=== PATIENT | male | born 1945 | race African-American/Black ===

== ENCOUNTER 2018-10-09 18:23 | Emergency (ER) | payer MEDICARE, OTHER ==
[~2018-10-09] VITALS: Ht 177.8 cm; Wt 77.1 kg
[~2018-10-09 18:23] MED LIST: AMOX1TAB61 PO; FOLI1TAB16 PO; HYDR-2761 PO; LISI-334 PO; LISI10TA2 PO; TAMS0.4C97 PO; THIA100T57 PO
[2018-10-09] MEDS ORDERED: IV NORMAL SALINE 1000ML BAG 1,000 ML IV SCH (18:28)
[2018-10-09] MEDS ORDERED: ONDANSETRON PF 4 MG/2 ML VIAL. IV ONE (18:30)
--- NOTE | 2018-10-09 18:42 | PHYS DOC ---
Past Medical History Past Medical History: Anxiety, Depression, High Cholesterol, Hypertension Additional Past Medical Histor: ENLARGED PROSTATE Past Surgical History: Cholecystectomy Additional Past Surgical Histo: ETOH ON BOARD Alcohol Use: None Drug Use: None Adult General Chief Complaint Chief Complaint: NAUSEA/VOMITING/DIARRHA HPI HPI Patient is a 73 year old male who presents via EMS with complaining of nausea and vomiting. Patient complaining of 4 episodes of nonbloody vomiting that started about an hour prior to arrival to ER with constant nausea. Patient state s he had 1 pint of pal today like his usual for the last 50 years. Patient denies abdominal pain, diarrhea and constipation, urinary symptom, fever and chills, chest pain. Patient complaining of chronic neck pain and intermittent episodes of headache and rated his pain 6/10. Patient complaining of bilateral hand paresthesia since his vomiting was started. Patient denies smoking cigarettes and using drugs. Patient states he had the same episode of nausea and vomiting one month ago. Review of Systems Review of Systems Constitutional: Denies fever or chills [] Eyes: Denies change in visual acuity, redness, or eye pain [] HENT: Denies nasal congestion or sore throat [] Respiratory: Denies cough or shortness of breath [] Cardiovascular: No additional information not addressed in HPI [] GI: Denies abdominal pain, bloody stools or diarrhea [] : Denies dysuria or hematuria [] Musculoskeletal: Post coronary neck and back. Integument: Denies rash or skin lesions [] Neurologic: Reports headache, sensory changes, denies focal weakness [] Endocrine: Denies polyuria or polydipsia [] All other systems were reviewed and found to be within normal limits, except as documented in this note. Current Medications Current Medications Current Medications Medications (Trade) Dose Ordered Sig/Ino Start Time Stop Time Status Last Admin Dose Admin Ondansetron HCl (Zofran) 4 mg 1X ONCE 10/09/18 18:30 10/09/18 18:32 DC Sodium Chloride 1,000 ml @ 1,000 mls/hr Q1H 10/09/18 18:28 10/09/18 19:27 DC 10/09/18 19:00 1,000 MLS/HR Allergies Allergies Allergies Coded Allergies Type Severity Reaction Last Updated Verified No Known Drug Allergies 07/22/15 No Physical Exam Physical Exam Constitutional: Well developed, well nourished, mild distress, non-toxic appearance, smell of alcohol on breath. [] HENT: Normocephalic, atraumatic. Eyes: PERRLA, EOMI, conjunctiva normal, no discharge. [] Neck: Normal range of motion, no tenderness, supple, no stridor. [] Cardiovascular:Heart rate regular rhythm, no murmur [] Lungs & Thorax: Bilateral breath sounds clear to auscultation [] Abdomen: Bowel sounds normal, soft, no tenderness, no masses, no pulsatile masses. [] Skin: Warm, dry, no erythema, no rash. [] Back: No tenderness, no CVA tenderness. [] Extremities: No tenderness, no cyanosis, no clubbing, ROM intact, no edema. [] Neurologic: Alert and oriented X 3, no focal deficits noted. [] Psychologic: Affect normal, judgement normal, mood normal. [] Current Patient Data Vital Signs Vital Signs Date Time Temp Pulse Resp B/P (MAP) Pulse Ox O2 Delivery O2 Flow Rate FiO2 10/09/18 20:53 93 18 153/80 (104) 93 Room Air 10/09/18 18:30 98.0 98.0 Lab Values Laboratory Tests Test 10/09/18 18:55 10/09/18 20:05 White Blood Count 6.3 x10^3/uL (4.0-11.0) Red Blood Count 4.47 x10^6/uL (4.30-5.70) Hemoglobin 13.1 g/dL (13.0-17.5) Hematocrit 38.6 % (39.0-53.0) L Mean Corpuscular Volume 87 fL (79-100) Mean Corpuscular Hemoglobin 29 pg (25-35) Mean Corpuscular Hemoglobin Concent 34 g/dL (31-37) Red Cell Distribution Width 14.9 % (11.5-14.5) H Platelet Count 267 x10^3/uL (140-400) Neutrophils (%) (Auto) 69 % (31-73) Lymphocytes (%) (Auto) 21 % (24-48) L Monocytes (%) (Auto) 8 % (0-9) Eosinophils (%) (Auto) 1 % (0-3) Basophils (%) (Auto) 1 % (0-3) Neutrophils # (Auto) 4.3 x10^3/uL (1.8-7.7) Lymphocytes # (Auto) 1.3 x10^3/uL (1.0-4.8) Monocytes # (Auto) 0.5 x10^3/uL (0.0-1.1) Eosinophils # (Auto) 0.1 x10^3/uL (0.0-0.7) Basophils # (Auto) 0.1 x10^3/uL (0.0-0.2) Prothrombin Time 13.3 SEC (11.7-14.0) Prothrombin Time INR 1.0 (0.8-1.1) Activated Partial Thromboplast Time 24 SEC (24-38) Sodium Level 138 mmol/L (136-145) Potassium Level 3.5 mmol/L (3.5-5.1) Chloride Level 98 mmol/L (98-107) Carbon Dioxide Level 24 mmol/L (21-32) Anion Gap 16 (6-14) H Blood Urea Nitrogen 13 mg/dL (8-26) Creatinine 1.0 mg/dL (0.7-1.3) Estimated GFR (Cockcroft-Gault) 88.9 BUN/Creatinine Ratio 13 (6-20) Glucose Level 109 mg/dL (70-99) H Calcium Level 8.9 mg/dL (8.5-10.1) Total Bilirubin 0.3 mg/dL (0.2-1.0) Aspartate Amino Transferase (AST) 35 U/L (15-37) Alanine Aminotransferase (ALT) 35 U/L (16-63) Alkaline Phosphatase 57 U/L (46-116) Creatine Kinase 189 U/L (39-308) Troponin I Quantitative < 0.017 ng/mL (0.000-0.055) SJ-Kwe-X-Type Natriuretic Peptide 349 pg/mL (0-124) H Total Protein 8.5 g/dL (6.4-8.2) H Albumin 3.9 g/dL (3.4-5.0) Albumin/Globulin Ratio 0.8 (1.0-1.7) L Lipase 193 U/L (73-393) Ethyl Alcohol Level 107 mg/dL (0-10) H Urine Collection Type Unknown Urine Color Yellow Urine Clarity Clear Urine pH 6.5 Urine Specific [place] 1.010 Urine Protein Negative mg/dL (NEG-TRACE) Urine Glucose (UA) Negative mg/dL (NEG) Urine Ketones (Stick) Negative mg/dL (NEG) Urine Blood Large (NEG) Urine Nitrite Negative (NEG) Urine Bilirubin Negative (NEG) Urine Urobilinogen Dipstick 1.0 mg/dL (0.2 mg/dL) Urine Leukocyte Esterase Trace (NEG) Urine RBC 11-20 /HPF (0-2) Urine WBC 5-10 /HPF (0-4) Urine Squamous Epithelial Cells Few /LPF Urine Bacteria 0 /HPF (0-FEW) Urine Hyaline Casts Few /HPF Urine Mucus Mod /LPF Urine Opiates Screen Neg (NEG) Urine Methadone Screen Neg (NEG) Urine Barbiturates Neg (NEG) Urine Phencyclidine Screen Neg (NEG) Urine Amphetamine/Methamphetamine Neg (NEG) Urine Benzodiazepines Screen Neg (NEG) Urine Cocaine Screen Neg (NEG) Urine Cannabinoids Screen Neg (NEG) Urine Ethyl Alcohol Pos (NEG) Laboratory Tests 10/09/18 18:55 Laboratory Tests 10/09/18 18:55 EKG EKG EKG interpreted by me. EKG at 1832 showed normal sinus rhythm at rate of 87, prolonged QT at 416, no acute history and T-wave elevation.[] Radiology/Procedures Radiology/Procedures [][facility] [address] [place], [place] [id number] IMAGING REPORT Signed PATIENT: NEEL CRAVEN ACCOUNT: [id number] : 1945 LOCATION: ER AGE: 73 SEX: M EXAM STATUS: REG ER ORD. PHYSICIAN: THONY DILLON MD REASON: headache PROCEDURE: CT HEAD AND CERVICAL SPINE WO CT scan of the head without contrast 10/09/2018 Clinical History: Headaches. Head injury. Technique: Unenhanced, contiguous, 5 mm axial sections were obtained through the head. One or more of the following individualized dose reduction techniques were utilized for this study: 1. Automated exposure control. 2. Adjustment of the mA and/or kV according to patient size. 3. Use of iterative reconstruction technique. Findings: Comparison study is dated 07/22/2015. There is generalized parenchymal atrophy. Areas of decreased attenuation are seen within the periventricular and subcortical white matter of both cerebral hemispheres consistent with areas of small vessel ischemic disease. No acute parenchymal abnormality is seen. No extra-axial fluid collection is noted. No skull fracture is seen. A 1 cm mucous retention cyst is seen involving the right maxillary sinus. Impression: No acute intracranial abnormality is seen. CT scan of the cervical spine without contrast 10/09/2018 Clinical history: Neck injury. Technique: Unenhanced, contiguous, 0.625 mm axial sections were obtained through the cervical spine. Axial, coronal and sagittal reconstructed images were obtained. One or more of the following individualized dose reduction techniques were utilized for this study: 1. Automated exposure control. 2. Adjustment of the mA and/or kV according to patient size. 3. Use of iterative reconstruction technique. Findings: Sagittal and coronal reconstructed images demonstrate very mild lateral curvature of the cervical spine, convex to the right. Degenerative changes consisting of varying degrees of disc space narrowing, vertebral endplate sclerosis and mild to moderate anterior and posterior vertebral body osteophyte formation are seen throughout the cervical disc spaces. No fracture or subluxation of the cervical vertebrae seen. Degenerative changes are seen involving the uncovertebral and facet joints throughout the cervical disc spaces. Impression: No fracture or subluxation of the cervical vertebra is identified. Electronically signed by: Adolfo Henderson MD (10/09/2018 7:47 PM) [facility] DICTATED and SIGNED BY: ADOLFO HENDERSON MD DATE: 10/09/181946 Course & Med Decision Making Course & Med Decision Making Pertinent Labs and Imaging studies reviewed. (See chart for details) Evaluation of patient in ER showed 73-year-old male patient brought in by EMS because of episodes of nausea and vomiting and chronic neck pain and headache. Patient was treated with Zofran by EMS and did not have active vomiting in ER. IV fluid was given. Labs showed mild elevation of blood alcohol with history of alcohol abuse. Patient felt better after treatment in ER and tolerated oral intake. Plan discharge patient home to diagnose of alcohol gastritis. Dragon Disclaimer Dragon Disclaimer This electronic medical record was generated, in whole or in part, using a voice recognition dictation system. Departure Departure Impression: Primary Impression: Acute alcoholic gastritis with hemorrhage Additional Impressions: Nausea and vomiting Urinary tract infection Alcohol abuse Chronic neck pain Disposition: HOME, SELF-CARE (at 2044) Condition: IMPROVED Referrals: UNKNOWN PCP NAME (PCP) Patient Instructions: Alcoholic Gastritis-Brief, Nausea and Vomiting, Urinary Tract Infection Additional Instructions: Drink plenty of liquids Follow-up with your primary care physician in 3-5 days Return to ER if not getting better Do not eat solid foods for 24 hours Scripts Ciprofloxacin Hcl (CIPRO) 250 Mg Tablet 1 TAB PO BID for infection, #6 TAB Prov: THONY DILLON MD 10/09/18 Ondansetron Hcl (ZOFRAN) 4 Mg Tablet 1 TAB PO PRN Q6-8HRS for nausea, #12 TAB Prov: THONY DILLON MD 10/09/18 Problem Qualifiers Additional Impressions: Nausea and vomiting Vomiting type: unspecified Vomiting Intractability: non-intractable Qualified Codes: R11.2 - Nausea with vomiting, unspecified Urinary tract infection Urinary tract infection type: site unspecified Hematuria presence: without hematuria Qualified Codes: N39.0 - Urinary tract infection, site not specified THONY DILLON MD Oct 09, 2018 18:42
[2018-10-09 19:03] LABS: BASO # 0.1 x10^3/uL (0.0-0.2); BASO % 1 % (0-3); EOS # 0.1 x10^3/uL (0.0-0.7); EOS % 1 % (0-3); HEMATOCRIT 38.6 % (39.0-53.0); HEMOGLOBIN 13.1 g/dL (13.0-17.5); LYMPH # 1.3 x10^3/uL (1.0-4.8); LYMPH % 21 % (24-48); MEAN CORPUSCULAR HEMOGLOBIN 29 pg (25-35); MEAN CORPUSCULAR HGB CONC 34 g/dL (31-37); MEAN CORPUSCULAR VOLUME 87 fL (79-100); MONO # 0.5 x10^3/uL (0.0-1.1); MONO % 8 % (0-9); NEUT # 4.3 x10^3/uL (1.8-7.7); NEUT % 69 % (31-73); PLATELET COUNT 267 x10^3/uL (140-400); RED BLOOD COUNT 4.47 x10^6/uL (4.30-5.70); RED CELL DISTRIBUTION WIDTH 14.9 % (11.5-14.5); WHITE BLOOD COUNT 6.3 x10^3/uL (4.0-11.0)
[2018-10-09 19:12] LABS: PROTHROMBIN TIME PATIENT 13.3 SEC (11.7-14.0)
[2018-10-09 19:13] LABS: CALCIUM 8.9 mg/dL (8.5-10.1); GFR 88.9; POTASSIUM 3.5 mmol/L (3.5-5.1)
[2018-10-09 19:20] LABS: ALBUMIN 3.9 g/dL (3.4-5.0); ALBUMIN/GLOBULIN RATIO 0.8 (1.0-1.7); TOTAL BILIRUBIN 0.3 mg/dL (0.2-1.0); TOTAL PROTEIN 8.5 g/dL (6.4-8.2)
--- NOTE | 2018-10-09 19:51 | RAD ---
CT scan of the head without contrast 10/09/2018 Clinical History: Headaches. Head injury. Technique: Unenhanced, contiguous, 5 mm axial sections were obtained through the head. One or more of the following individualized dose reduction techniques were utilized for this study: 1. Automated exposure control. 2. Adjustment of the mA and/or kV according to patient size. 3. Use of iterative reconstruction technique. Findings: Comparison study is dated 07/22/2015. There is generalized parenchymal atrophy. Areas of decreased attenuation are seen within the periventricular and subcortical white matter of both cerebral hemispheres consistent with areas of small vessel ischemic disease. No acute parenchymal abnormality is seen. No extra-axial fluid collection is noted. No skull fracture is seen. A 1 cm mucous retention cyst is seen involving the right maxillary sinus. Impression: No acute intracranial abnormality is seen. CT scan of the cervical spine without contrast 10/09/2018 Clinical history: Neck injury. Technique: Unenhanced, contiguous, 0.625 mm axial sections were obtained through the cervical spine. Axial, coronal and sagittal reconstructed images were obtained. One or more of the following individualized dose reduction techniques were utilized for this study: 1. Automated exposure control. 2. Adjustment of the mA and/or kV according to patient size. 3. Use of iterative reconstruction technique. Findings: Sagittal and coronal reconstructed images demonstrate very mild lateral curvature of the cervical spine, convex to the right. Degenerative changes consisting of varying degrees of disc space narrowing, vertebral endplate sclerosis and mild to moderate anterior and posterior vertebral body osteophyte formation are seen throughout the cervical disc spaces. No fracture or subluxation of the cervical vertebrae seen. Degenerative changes are seen involving the uncovertebral and facet joints throughout the cervical disc spaces. Impression: No fracture or subluxation of the cervical vertebra is identified. Electronically signed by: Adolfo Tejada MD (10/09/2018 7:47 PM) [facility]
[2018-10-09 20:23] LABS: BILIRUBIN,URINE NEGATIVE (NEG); CLARITY,URINE CLEAR; COLOR,URINE YELLOW; NITRITE,URINE NEGATIVE (NEG); PH,URINE 6.5; PROTEIN,URINE NEGATIVE (NEG-TRACE)
[2018-10-09 20:29] LABS: BACTERIA,URINE 0 /HPF (0-FEW)
[2018-10-09 20:30] LABS: AMPHETAMINE/METHAMPHETAMINE NEG (NEG); BARBITURATES NEG (NEG); BENZODIAZEPINES NEG (NEG); CANNABINOIDS NEG (NEG); COCAINE NEG (NEG); HYALINE CASTS, URINE FEW /HPF; METHADONE NEG (NEG); OPIATES NEG (NEG); PHENCYCLIDINE NEG (NEG); SQUAMOUS EPITHELIAL CELL,UR FEW /LPF
[2018-10-09] MEDS ORDERED: ONDA4TAB7 PO (20:48)
[2018-10-09] MEDS ORDERED: CIPR250T30 PO (20:51)
[2018-10-09 20:53] VITALS: BP 153/80
--- NOTE | 2018-10-10 06:47 | EKG ---
[facility] [address] [place] [address] Test Date: 2018-10-09 Test Time: 18:33:35 Pat Name: NELE CRAVEN Department: Room: Gender: M Rouge Miller: : 1945 Requested By: THONY DILLON Order Number: [id number] Reading MD: Charles Gaston MD Measurements Intervals [place] Rate: 86 P: -31 ND: 190 QRS: 26 QRSD: 78 T: 49 QT: 416 QTc: 501 Interpretive Statements SINUS RHYTHM PROLONGED QT Electronically Signed On 10-10-2018 16:05:36 CDT by Charles Gaston MD
== END 2018-10-09 20:55 | disposition home or self-care (01) ==
LOC: ER 18:23
DX: K29.21 Alcoholic gastritis with bleeding (principal); F10.10 Alcohol abuse, uncomplicated; Y90.5 Blood alcohol level of 100-119 mg/100 ml; N39.0 Urinary tract infection, site not specified; G89.29 Other chronic pain; M54.2 Cervicalgia; R51 Headache; E78.00 Pure hypercholesterolemia, unspecified; I10 Essential (primary) hypertension; Z90.49 Acquired absence of other specified parts of digestive tract
CPT/HCPCS: 36415; 70450; 72125; 80053; 80307; 81001; 82550; 83690; 83880; 84484; 85025; 85610; 85730; 87086; 93005; 96360; 99285; G0480; J7030

== ENCOUNTER 2019-10-01 15:36 | Observation (INO) | payer OTHER ==
[~2019-10-01] VITALS: Ht 177.8 cm; Wt 79.7 kg
[~2019-10-01 15:36] MED LIST changes: +CIPR250T30 PO; +ONDA4TAB7 PO
[2019-10-01] MEDS ORDERED: FAMOTIDINE 20 MG/2 ML VIAL IVP ONE (16:00)
[2019-10-01] MEDS ORDERED: DEXAMETHASONE SOD PHOS 4 MG/ML VIAL IVP ONE (16:00)
[2019-10-01] MEDS ORDERED: EPINEPHrine 1 MG/ML VIAL SQ ONE (16:00)
[2019-10-01] MEDS ORDERED: EPINEPHrine 1 MG/ML VIAL ONE (16:03)
[2019-10-01 16:13] LABS: BASO # 0.1 x10^3/uL (0.0-0.2); BASO % 1 % (0-3); EOS # 0.2 x10^3/uL (0.0-0.7); EOS % 3 % (0-3); HEMATOCRIT 41.2 % (39.0-53.0); HEMOGLOBIN 13.6 g/dL (13.0-17.5); LYMPH # 1.6 x10^3/uL (1.0-4.8); LYMPH % 23 % (24-48); MEAN CORPUSCULAR HEMOGLOBIN 30 pg (25-35); MEAN CORPUSCULAR HGB CONC 33 g/dL (31-37); MEAN CORPUSCULAR VOLUME 90 fL (79-100); MONO # 1.2 x10^3/uL (0.0-1.1); MONO % 17 % (0-9); NEUT # 3.9 x10^3/uL (1.8-7.7); NEUT % 56 % (31-73); PLATELET COUNT 272 x10^3/uL (140-400); RED BLOOD COUNT 4.59 x10^6/uL (4.30-5.70); RED CELL DISTRIBUTION WIDTH 14.1 % (11.5-14.5); WHITE BLOOD COUNT 6.9 x10^3/uL (4.0-11.0)
[2019-10-01 16:19] LABS: CALCIUM 9.2 mg/dL (8.5-10.1); GFR 88.6; POTASSIUM 4.3 mmol/L (3.5-5.1)
[2019-10-01] MEDS ORDERED: LIDOCAINE 2% JELLY 6ML IN APPLICATOR. ONE (17:38)
--- NOTE | 2019-10-01 17:38 | PHYS DOC ---
Past Medical History Past Medical History: Alcoholism, Anxiety, Depression, High Cholesterol, Hypertension Additional Past Medical Histor: ENLARGED PROSTATE Past Surgical History: Cholecystectomy Additional Past Surgical Histo: ETOH ON BOARD Smoking Status: Former Smoker Additional Information: quit smoking 25-30 years ago Alcohol Use: Sober Additional Information: sober x 9 days- prior was drinking a pint of vodka daily Drug Use: None Social History Narrative: last used cocaine last month General Adult EDM: Chief Complaint: ALLERGIC REACTION HPI: HPI: Patient is a 74 year old male who presents with multiple complaints. Patient accidentally pulled out his Fox catheter. He states he tried to put it back in but was unsuccessful. He also states around the same time he developed swelling in his lips. He is never had anything like this before. He denies any shortness of breath, difficulty talking, difficulty swallowing, difficulty breathing. He states he is on lisinopril. He is never had an allergic reaction. Review of Systems: Review of Systems: General: Denies fever, chills, sweats, fatigue Eyes: Denies drainage, blurred vision, eye redness HENT: Denies rhinorrhea, sore throat, earache Respiratory: Denies cough, shortness of breath, wheezing Cardiac: Denies edema, palpitations, chest pain GI: Denies abdominal pain, Nausea, vomiting MSK: Denies back pain, neck pain Skin: Denies rash, jaundice Neuro: Denies headache, dizziness Psychiatric: Denies SI/HI Heart Score: Risk Factors: Risk Factors: DM, Current or recent (<one month) smoker, HTN, HLP, family history of CAD, obesity. Risk Scores: Score 0 - 3: 2.5% MACE over next 6 weeks - Discharge Home Score 4 - 6: 20.3% MACE over next 6 weeks - Admit for Clinical Observation Score 7 - 10: 72.7% MACE over next 6 weeks - Early Invasive Strategies Current Medications: Current Medications Medications (Trade) Dose Ordered Sig/Ino Start Time Stop Time Status Last Admin Dose Admin Dexamethasone Sodium Phosphate (Decadron) 10 mg 1X ONCE 10/01/19 16:00 10/01/19 16:04 DC 10/01/19 16:10 10 MG Epinephrine HCl (Adrenalin) 1 mg STK-MED ONCE 10/01/19 16:03 10/01/19 16:04 DC Famotidine (Pepcid Vial) 20 mg 1X ONCE 10/01/19 16:00 10/01/19 16:04 DC 10/01/19 16:13 20 MG Allergies: Allergies: Allergies Coded Allergies Type Severity Reaction Last Updated Verified No Known Drug Allergies 07/22/15 No Physical Exam: PE: General: Awake, alert, NAD. Well Nourished, well hydrated. Cooperative HEENT: Atraumatic, EOMI, PERRL, airway patent, severe swelling in upper and lower lips, soft palate swelling Neck: Supple, trachea midline, no stridor Respiratory: CTA bilaterally, normal effort, no wheezing/crackles CV: RRR, no murmur, cap refill <2 GI: Soft, nondistended, nontender, no masses MSK: No obvious deformities Skin: Warm, dry, intact Neuro: A&O x3, speech NL, sensory and motor grossly intact, no focal deficits Psych: Normal affect, normal mood, not suicidal or homicidal Current Patient Data: Labs: Laboratory Tests Test 10/01/19 15:57 White Blood Count 6.9 x10^3/uL (4.0-11.0) Red Blood Count 4.59 x10^6/uL (4.30-5.70) Hemoglobin 13.6 g/dL (13.0-17.5) Hematocrit 41.2 % (39.0-53.0) Mean Corpuscular Volume 90 fL (79-100) Mean Corpuscular Hemoglobin 30 pg (25-35) Mean Corpuscular Hemoglobin Concent 33 g/dL (31-37) Red Cell Distribution Width 14.1 % (11.5-14.5) Platelet Count 272 x10^3/uL (140-400) Neutrophils (%) (Auto) 56 % (31-73) Lymphocytes (%) (Auto) 23 % (24-48) L Monocytes (%) (Auto) 17 % (0-9) H Eosinophils (%) (Auto) 3 % (0-3) Basophils (%) (Auto) 1 % (0-3) Neutrophils # (Auto) 3.9 x10^3/uL (1.8-7.7) Lymphocytes # (Auto) 1.6 x10^3/uL (1.0-4.8) Monocytes # (Auto) 1.2 x10^3/uL (0.0-1.1) H Eosinophils # (Auto) 0.2 x10^3/uL (0.0-0.7) Basophils # (Auto) 0.1 x10^3/uL (0.0-0.2) Sodium Level 134 mmol/L (136-145) L Potassium Level 4.3 mmol/L (3.5-5.1) Chloride Level 99 mmol/L (98-107) Carbon Dioxide Level 25 mmol/L (21-32) Anion Gap 10 (6-14) Blood Urea Nitrogen 17 mg/dL (8-26) Creatinine 1.0 mg/dL (0.7-1.3) Estimated GFR (Cockcroft-Gault) 88.6 Glucose Level 92 mg/dL (70-99) Calcium Level 9.2 mg/dL (8.5-10.1) Laboratory Tests 10/01/19 15:57 Laboratory Tests 10/01/19 15:57 Vital Signs: Vital Signs Date Time Temp Pulse Resp B/P (MAP) Pulse Ox O2 Delivery O2 Flow Rate FiO2 10/01/19 15:54 98.5 87 20 161/74 (103) 99 Room Air 98.5 EKG: EKG: [] Radiology/Procedures: Radiology/Procedures: [] Course & Med Decision Making: Course & Med Decision Making Pertinent Labs and Imaging studies reviewed. (See chart for details) Patient 74-year-old male who presents the emergency room after pulling out his Fox and developing angioedema. Fox will be replaced here in the emergency room. Patient has significant angioedema. Airway is intact at this time. I did offer him immediate intubation versus observation. Patient states he is breathing okay at this time and would like to wait. We will hold off on intubation as he does not have any stridor, wheezing, drooling. He will be given medications for allergic reaction, however this is more likely to be angioedema due to lisinopril. Patient will be admitted for observation. Dragon Disclaimer: Dragon Disclaimer: This electronic medical record was generated, in whole or in part, using a voice recognition dictation system. Departure Departure Impression: Primary Impression: Angioedema Additional Impression: Fox catheter problem Disposition: ADMITTED INPATIENT Condition: STABLE Referrals: UNKNOWN PCP NAME (PCP) Justicifation of Admission Dx: Justifications for Admission: Justification of Admission Dx: Yes ANAND GÓMEZ MD Oct 01, 2019 17:38
[2019-10-01] MEDS ORDERED: LIDOCAINE 2% JELLY 6ML IN APPLICATOR. MM ONE (18:00)
[2019-10-01 19:31] VITALS: BP 156/81
[2019-10-01] MEDS ORDERED: diphenhydrAMINE 50 MG/ML VIAL IVP PRN (19:45)
[2019-10-01] MEDS ORDERED: CARV12.511 PO (19:55)
[2019-10-01] MEDS ORDERED: POTA20TA4 PO (19:55)
[2019-10-01] MEDS ORDERED: FINA5TAB4 PO (19:55)
[2019-10-01] MEDS ORDERED: MAGN400T5 PO (19:55)
--- NOTE | 2019-10-01 20:23 | HP ---
ADMIT DATE: 10/01/2019 CHIEF COMPLAINT: "I pulled out my Fox catheter accidentally." HISTORY OF PRESENT ILLNESS: The patient is a pleasant middle-aged male who pulled out of his Fox. We placed it back in, but interestingly while he was in the ER, he had developed severe angioedema. He indeed is on an MEGHA inhibitor. I have discussed the case with the ER physician. We are going to admit the patient, give him some IV Benadryl, IV steroids, and IV Pepcid. PAST MEDICAL HISTORY: Alcoholism, anxiety, depression, hyperlipidemia, hypertension, BPH, cholecystectomy, previous tobacco abuse. ALLERGIES: LISINOPRIL. FAMILY HISTORY: Diabetes. SOCIAL HISTORY: Does not drink, smoke or take drugs currently, although he used to smoke and drink. MEDICATIONS: Reviewed, please refer to the MRAD. Interestingly, he is on lisinopril 20 mg p.o. every day, but it is on his allergy list? He is also on Cipro, Flomax, hydrocodone, Zofran, folic acid and vitamin B. REVIEW OF SYSTEMS: GENERAL: No history of weight change, weakness or fevers. SKIN: No bruising, hair changes or rashes. EYES: No blurred, double or loss of vision. He complains of swollen lips. NOSE AND THROAT: No history of nosebleeds, hoarseness or sore throat. HEART: No history of palpitations, chest pain or shortness of breath on exertion. LUNGS: Denies cough, hemoptysis, wheezing or shortness of breath. GASTROINTESTINAL: Denies changes in appetite, nausea, vomiting, diarrhea or constipation. GENITOURINARY: No history of frequency, urgency, hesitancy or nocturia. NEUROLOGIC: Denies history of numbness, tingling, tremor or weakness. PSYCHIATRIC: No history of panic, anxiety or depression. ENDOCRINE: No history of heat or cold intolerance, polyuria or polydipsia. EXTREMITIES: Denies muscle weakness, joint pain, pain on walking or stiffness. PHYSICAL EXAMINATION: VITALS: Within normal limits and are stable. GENERAL: No apparent distress. Alert and oriented. HEENT: He has moderate amount of swelling of the lips and the ER doctor offered consideration for intubation, but the patient refused. EYES: Extraocular muscles are intact, pupils are equally round and reactive to light and accommodation MUSCULOSKELETAL: Well developed, well nourished, good range of motion ENDOCRINE: No thyromegaly was palpated LYMPHATICS: No cervical chain or axillary nodes were noted HEMATOPOIETIC: No bruising NECK: Supple, no JVD, no thyromegaly was noted. LUNGS: Clear to auscultation in all lung richards without rhonchi or wheezing. HEART: RRR, S1, S2 present. Peripheral pulses intact, no obvious murmurs were noted. ABDOMEN: Soft, nontender. Positive bowel sounds no organomegaly, normal bowel sounds. EXTREMITIES: Without any cyanosis, clubbing, or edema. Pedal pulses intact, Homans sign is negative. NEUROLOGIC: Normal speech, normal tone. A & O x3, moves all extremities, no obvious focal deficits. PSYCHIATRIC: Normal affect, normal mood. Stable. SKIN: No ulcerations or rashes, good skin turgor, no jaundice. VASCULAR: Good capillary refill, neurovascular bundle appears to be intact. LABORATORY DATA: Hematology is normal. Electrolytes are normal other than sodium of 134. ASSESSMENT AND PLAN: Angioedema. I have ordered Solu-Medrol 60 mg IV every 12 hours, Benadryl 25 mg IV every 6 hours, and Pepcid 20 mg IV every 12 hours. Again, the ER physician explained to me she offered him intubation, but he really refuses it. IV fluids, home meds if possible. DVT prophylaxis. Full code. AHMET HARRIS DO DR: SCOT/bo JOB#: [id number] / [id number]
[2019-10-01] MEDS: FAMOTIDINE 20 MG/2 ML VIAL IVP SCH (21:20)
[2019-10-01] MEDS: methylPREDNISolone SOD SUCC PF 40 MG/ML VIAL. IV SCH (21:21)
[2019-10-01 23:49] VITALS: BP 122/75
--- NOTE | 2019-10-02 02:40 | NUR ---
Patient arrived from ED with angioedema due to medication lisinopril. Verified patients medication and orders with Dr. Treviño. Holding off on medication due to angioedema and clear liquid diet. Patient speech is clear and airway. Patient valuables verified.
[2019-10-02 02:41] VITALS: BP 150/94
[2019-10-02 05:43] LABS: BASO % 0 % (0-3); EOS % 0 % (0-3); HEMATOCRIT 39.8 % (39.0-53.0); HEMOGLOBIN 13.3 g/dL (13.0-17.5); LYMPH # 0.9 x10^3/uL (1.0-4.8); LYMPH % 13 % (24-48); MEAN CORPUSCULAR HEMOGLOBIN 30 pg (25-35); MEAN CORPUSCULAR HGB CONC 34 g/dL (31-37); MEAN CORPUSCULAR VOLUME 91 fL (79-100); MONO # 0.3 x10^3/uL (0.0-1.1); MONO % 5 % (0-9); NEUT # 5.3 x10^3/uL (1.8-7.7); NEUT % 82 % (31-73); PLATELET COUNT 280 x10^3/uL (140-400); RED CELL DISTRIBUTION WIDTH 13.9 % (11.5-14.5); WHITE BLOOD COUNT 6.4 x10^3/uL (4.0-11.0)
[2019-10-02 05:56] LABS: ALBUMIN 3.3 g/dL (3.4-5.0); ALBUMIN/GLOBULIN RATIO 0.7 (1.0-1.7); CALCIUM 9.2 mg/dL (8.5-10.1); CREATININE 0.9 mg/dL (0.7-1.3); GFR 100.1; POTASSIUM 4.8 mmol/L (3.5-5.1); TOTAL BILIRUBIN 0.4 mg/dL (0.2-1.0); TOTAL PROTEIN 8.1 g/dL (6.4-8.2)
[2019-10-02 07:00] VITALS: BP 154/87
[2019-10-02] MEDS: FAMOTIDINE 20 MG/2 ML VIAL IVP SCH (08:18)
[2019-10-02] MEDS: methylPREDNISolone SOD SUCC PF 40 MG/ML VIAL. IV SCH (08:19)
[2019-10-02 11:10] VITALS: BP 151/87
--- NOTE | 2019-10-02 11:45 | NUR ---
SS following for discharge planning. SS reviewed pt chart and discussed with pt RN. Pt is from home and is currently on room air. Pt on clear liquid diet. Discharge plan is to home when medically ready. SS will continue to follow for discharge planning.
--- NOTE | 2019-10-02 12:08 | PDOC3 ---
Discharge Summary Visit Information Date of Admission: Oct 01, 2019 Date of Discharge: Oct 02, 2019 Final Diagnosis acute Angioedema, face and tongue, acute admit, reaction to lisinopril BPH, urinary retentino, chronic savage at home htn PTSD anxiety, depression lipids Problems Medical Problems: (1) Angioedema Status: Acute (2) Savage catheter problem Status: Acute Brief Hospital Course Allergies Allergies Coded Allergies Type Severity Reaction Last Updated Verified lisinopril Allergy Severe Swelling 10/01/19 Yes Vital Signs Vital Signs Date Time Temp Pulse Resp B/P (MAP) Pulse Ox O2 Delivery O2 Flow Rate FiO2 10/02/19 11:10 98.3 84 16 151/87 (108) 97 Room Air 98.3 Lab Results Laboratory Tests Test 10/01/19 15:57 10/02/19 05:00 White Blood Count 6.9 x10^3/uL (4.0-11.0) 6.4 x10^3/uL (4.0-11.0) Red Blood Count 4.59 x10^6/uL (4.30-5.70) 4.40 x10^6/uL (4.30-5.70) Hemoglobin 13.6 g/dL (13.0-17.5) 13.3 g/dL (13.0-17.5) Hematocrit 41.2 % (39.0-53.0) 39.8 % (39.0-53.0) Mean Corpuscular Volume 90 fL (79-100) 91 fL (79-100) Mean Corpuscular Hemoglobin 30 pg (25-35) 30 pg (25-35) Mean Corpuscular Hemoglobin Concent 33 g/dL (31-37) 34 g/dL (31-37) Red Cell Distribution Width 14.1 % (11.5-14.5) 13.9 % (11.5-14.5) Platelet Count 272 x10^3/uL (140-400) 280 x10^3/uL (140-400) Neutrophils (%) (Auto) 56 % (31-73) 82 % (31-73) Lymphocytes (%) (Auto) 23 % (24-48) 13 % (24-48) Monocytes (%) (Auto) 17 % (0-9) 5 % (0-9) Eosinophils (%) (Auto) 3 % (0-3) 0 % (0-3) Basophils (%) (Auto) 1 % (0-3) 0 % (0-3) Neutrophils # (Auto) 3.9 x10^3/uL (1.8-7.7) 5.3 x10^3/uL (1.8-7.7) Lymphocytes # (Auto) 1.6 x10^3/uL (1.0-4.8) 0.9 x10^3/uL (1.0-4.8) Monocytes # (Auto) 1.2 x10^3/uL (0.0-1.1) 0.3 x10^3/uL (0.0-1.1) Eosinophils # (Auto) 0.2 x10^3/uL (0.0-0.7) 0.0 x10^3/uL (0.0-0.7) Basophils # (Auto) 0.1 x10^3/uL (0.0-0.2) 0.0 x10^3/uL (0.0-0.2) Sodium Level 134 mmol/L (136-145) 138 mmol/L (136-145) Potassium Level 4.3 mmol/L (3.5-5.1) 4.8 mmol/L (3.5-5.1) Chloride Level 99 mmol/L (98-107) 103 mmol/L (98-107) Carbon Dioxide Level 25 mmol/L (21-32) 26 mmol/L (21-32) Anion Gap 10 (6-14) 9 (6-14) Blood Urea Nitrogen 17 mg/dL (8-26) 13 mg/dL (8-26) Creatinine 1.0 mg/dL (0.7-1.3) 0.9 mg/dL (0.7-1.3) Estimated GFR (Cockcroft-Gault) 88.6 100.1 Glucose Level 92 mg/dL (70-99) 173 mg/dL (70-99) Calcium Level 9.2 mg/dL (8.5-10.1) 9.2 mg/dL (8.5-10.1) BUN/Creatinine Ratio 14 (6-20) Total Bilirubin 0.4 mg/dL (0.2-1.0) Aspartate Amino Transf (AST/SGOT) 21 U/L (15-37) Alanine Aminotransferase (ALT/SGPT) 44 U/L (16-63) Alkaline Phosphatase 63 U/L (46-116) Total Protein 8.1 g/dL (6.4-8.2) Albumin 3.3 g/dL (3.4-5.0) Albumin/Globulin Ratio 0.7 (1.0-1.7) Laboratory Tests Test 10/01/19 15:57 10/02/19 05:00 White Blood Count 6.9 x10^3/uL (4.0-11.0) 6.4 x10^3/uL (4.0-11.0) Red Blood Count 4.59 x10^6/uL (4.30-5.70) 4.40 x10^6/uL (4.30-5.70) Hemoglobin 13.6 g/dL (13.0-17.5) 13.3 g/dL (13.0-17.5) Hematocrit 41.2 % (39.0-53.0) 39.8 % (39.0-53.0) Mean Corpuscular Volume 90 fL (79-100) 91 fL (79-100) Mean Corpuscular Hemoglobin 30 pg (25-35) 30 pg (25-35) Mean Corpuscular Hemoglobin Concent 33 g/dL (31-37) 34 g/dL (31-37) Red Cell Distribution Width 14.1 % (11.5-14.5) 13.9 % (11.5-14.5) Platelet Count 272 x10^3/uL (140-400) 280 x10^3/uL (140-400) Neutrophils (%) (Auto) 56 % (31-73) 82 % (31-73) Lymphocytes (%) (Auto) 23 % (24-48) 13 % (24-48) Monocytes (%) (Auto) 17 % (0-9) 5 % (0-9) Eosinophils (%) (Auto) 3 % (0-3) 0 % (0-3) Basophils (%) (Auto) 1 % (0-3) 0 % (0-3) Neutrophils # (Auto) 3.9 x10^3/uL (1.8-7.7) 5.3 x10^3/uL (1.8-7.7) Lymphocytes # (Auto) 1.6 x10^3/uL (1.0-4.8) 0.9 x10^3/uL (1.0-4.8) Monocytes # (Auto) 1.2 x10^3/uL (0.0-1.1) 0.3 x10^3/uL (0.0-1.1) Eosinophils # (Auto) 0.2 x10^3/uL (0.0-0.7) 0.0 x10^3/uL (0.0-0.7) Basophils # (Auto) 0.1 x10^3/uL (0.0-0.2) 0.0 x10^3/uL (0.0-0.2) Sodium Level 134 mmol/L (136-145) 138 mmol/L (136-145) Potassium Level 4.3 mmol/L (3.5-5.1) 4.8 mmol/L (3.5-5.1) Chloride Level 99 mmol/L (98-107) 103 mmol/L (98-107) Carbon Dioxide Level 25 mmol/L (21-32) 26 mmol/L (21-32) Anion Gap 10 (6-14) 9 (6-14) Blood Urea Nitrogen 17 mg/dL (8-26) 13 mg/dL (8-26) Creatinine 1.0 mg/dL (0.7-1.3) 0.9 mg/dL (0.7-1.3) Estimated GFR (Cockcroft-Gault) 88.6 100.1 Glucose Level 92 mg/dL (70-99) 173 mg/dL (70-99) Calcium Level 9.2 mg/dL (8.5-10.1) 9.2 mg/dL (8.5-10.1) BUN/Creatinine Ratio 14 (6-20) Total Bilirubin 0.4 mg/dL (0.2-1.0) Aspartate Amino Transf (AST/SGOT) 21 U/L (15-37) Alanine Aminotransferase (ALT/SGPT) 44 U/L (16-63) Alkaline Phosphatase 63 U/L (46-116) Total Protein 8.1 g/dL (6.4-8.2) Albumin 3.3 g/dL (3.4-5.0) Albumin/Globulin Ratio 0.7 (1.0-1.7) Brief Hospital Course Mr. Erickson is a 74 old admit with acute facial and tongue swelling, no shortness of breath, but drooling, agressive meds given, Solu-Medrol 60 mg IV every 12 hours, Benadryl 25 mg IV every 6 hours, and Pepcid 20 mg IV every 12 hours. he was much imrpoved at [facility], he felt well, and wanted to [place], able to eat Discharge Information Condition at Discharge: Improved Follow Up: Weeks Disposition/Orders: D/C to Home Scheduled Carvedilol (Carvedilol ) 12.5 Mg Tablet, 12.5 MG PO BIDWMEALS for CARDIAC, (Reported) Entered as Reported by: VALARIE BOSS on 10/01/191954 Last Taken: Unknown Dose on 10/01/19 Last Action: New Order on 10/01/191954 by VALARIE BOSS Finasteride (Finasteride) 5 Mg Tablet, 1 TAB PO DAILY for Prostate, #30 Ref 11 (Reported) Entered as Reported by: VALARIE BOSS on 10/01/191954 Last Taken: Unknown Dose on 10/01/19 Last Action: New Order on 10/01/191954 by VALARIE BOSS Magnesium Oxide (Magnesium Oxide) 400 Mg Tablet, 1 TAB PO DAILY for Supplement, #30 Ref 5 (Reported) Entered as Reported by: VALARIE BOSS on 10/01/191954 Last Taken: Unknown Dose on 10/01/19 Last Action: New Order on 10/01/191954 by VALARIE BOSS Potassium Chloride (Potassium Chloride ) 20 Meq Tablet.er, 20 MEQ PO DAILY for SUPPLEMENT, (Reported) Entered as Reported by: VALARIE BOSS on 10/01/191954 Last Taken: Unknown Dose on 10/01/19 Last Action: New Order on 10/01/191954 by VALARIE BOSS Patient Instructions Patient Instructions face to face > 30 min Justicifation of Admission Dx: Justifications for Admission: Justification of Admission Dx: Yes NADIR MUNIZ MD Oct 02, 2019 12:08
[2019-10-02] MEDS ORDERED: LOSA-73 PO (12:13)
--- NOTE | 2019-10-02 14:00 | NUR ---
Discharge Note: [facility] Discharge instructions and discharge home medications reviewed with Patient and a copy given. All questions have been answered and understanding verbalized. Patient given education on catheter bag replacement for chronic savage. All belongings taken with patient upon discharge. The following instructions and handouts were given: angioedema, and losartan Discontinued lines and drains: Peripheral IV intact. Patient discharged to Home or Self Care with Self via Wheelchair
== END 2019-10-02 14:00 | disposition home or self-care (01) ==
LOC: ER 15:36 → 2 SOUTH 16:42
PROVIDERS: ADMIT Internal Medicine; ATTEND Internal Medicine
DX: T78.3XXA Angioneurotic edema, initial encounter (principal); T83.9XXA Unspecified complication of genitourinary prosthetic device, implant and graft, initial encounter; F41.9 Anxiety disorder, unspecified; F32.9 Major depressive disorder, single episode, unspecified; E78.00 Pure hypercholesterolemia, unspecified; E78.5 Hyperlipidemia, unspecified; I10 Essential (primary) hypertension; N40.0 Benign prostatic hyperplasia without lower urinary tract symptoms; Z90.49 Acquired absence of other specified parts of digestive tract; Z87.891 Personal history of nicotine dependence
CPT/HCPCS: 36415; 80048; 80053; 85025; 96372; 96374; 96375; 96376; 99284; G0378; J0171; J1100; J2920; J3490; G0379

== ENCOUNTER 2020-12-01 11:48 | Emergency (ER) | payer OTHER ==
[~2020-12-01] VITALS: Ht 177.8 cm; Wt 84.0 kg
[~2020-12-01 11:48] MED LIST changes: +CARV12.511 PO; +FINA5TAB4 PO; -LISI-334 PO; +LISI10TA16 PO; -LISI10TA2 PO; +LISI20TA18 PO; +LOSA-73 PO; +MAGN400T48 PO; +POTA20TA4 PO
[2020-12-01 12:10] VITALS: BP 215/108
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
--- NOTE | 2020-12-01 12:59 | RAD ---
EXAM: 1. Frontal pelvis with two-view right hip. 2. Right calcaneus 2 views. HISTORY: Right hip and calcaneal pain. COMPARISON: None. FINDINGS: Right hip osteoarthritis is moderate. Left hip osteoarthritis is mild. Heterotopic ossifica tion in the right proximal thigh is partially visualized. There is moderate degenerative change in th e lower lumbar spine. There is a moderate plantar calcaneal spur. There is no calcaneal fracture. Subtalar joint spaces and alignment are maintained. Soft tissue swelling is noted along the midfoot. IMPRESSION: 1. Mild osteoarthritis is moderate on the right and mild on the left. 2. Moderate posterior calcaneal spur. Forefoot soft tissue swelling. Electronically signed by: Lacy Dick MD (12/01/2020 12:56 PM) [id number]
--- NOTE | 2020-12-01 12:59 | RAD ---
EXAM: Right lower extremity venous Doppler. HISTORY: Right lower extremity pain/swelling. COMPARISON: None. FINDINGS: Grayscale and Doppler analysis of the right lower extremity deep venous system was performe d with graded compression and augmentation. The common femoral, greater saphenous, superficial femora l, popliteal and calf veins were assessed. There is no evidence of deep venous thrombosis. IMPRESSION: 1. No evidence of deep venous thrombosis. Electronically signed by: Lacy Dick MD (12/01/2020 12:57 PM) [id number]
[2020-12-01] MEDS ORDERED: HYDR-2759 PO (13:12)
== END 2020-12-01 13:28 | disposition home or self-care (01) ==
LOC: ER 11:48
DX: M79.604 Pain in right leg (principal); M16.11 Unilateral primary osteoarthritis, right hip; M77.31 Calcaneal spur, right foot; R22.41 Localized swelling, mass and lump, right lower limb; E78.00 Pure hypercholesterolemia, unspecified; I10 Essential (primary) hypertension; Z87.891 Personal history of nicotine dependence; Z90.49 Acquired absence of other specified parts of digestive tract; Z88.6 Allergy status to analgesic agent
CPT/HCPCS: 73502; 73650; 93971; 99284-25